=== PATIENT | male | born 1950 | race Caucasian/White ===

== ENCOUNTER 2017-12-03 07:11 | Day surgery (SDC) | payer OTHER ==
[2017-12-03] MEDS ORDERED: NS 500 ML IV 500 ML IV ONE ×2 (07:31→08:26)
[2017-12-03] MEDS ORDERED: TETRACAINE 0.5% OPHTH 1 DOSE AFFEYE ONE ×4 (07:35→09:33)
[2017-12-03] MEDS ORDERED: VIGAMOX 0.5% OPHTH 1 DOSE AFFEYE ONE ×5 (07:36→09:47)
[2017-12-03] MEDS ORDERED: PROLENSA OPHTH 1 DOSE AFFEYE ONE (07:47)
[2017-12-03] MEDS ORDERED: ALPHAGAN-P OPHTH 1 DOSE AFFEYE ONE (07:48)
[2017-12-03] MEDS ORDERED: MYDRIACIL OPHTH 1 DOSE AFFEYE ONE ×2 (07:49→07:50)
[2017-12-03] MEDS ORDERED: AK-DILATE 2.5% OPHTH 1 DOSE OP ONE ×3 (07:49→07:51)
[2017-12-03] MEDS ORDERED: CYCLOGYL 1% OPHTH 1 DOSE OP ONE ×3 (07:49→07:51)
[2017-12-03] MEDS ORDERED: MYDRIACIL OPHTH 1 DOSE OP ONE (07:51)
[2017-12-03] MEDS ORDERED: BETADINE OPHTH SOLN 5% EACHEYE ONE (09:25)
[2017-12-03] MEDS ORDERED: XYLOCAINE-MPF 1% IJ ONE ×2 (09:31→09:33)
[2017-12-03] MEDS ORDERED: ADRENALINE CHL INJ IJ ONE ×2 (09:31→09:33)
[2017-12-03] MEDS ORDERED: BSS OPHTH (PLAIN) 500 ML with VANCOMYCIN HCL 500 MG VIAL 25 MG, ADRENALINE CHL INJ 1 MG IR ONE ×3 (09:32)
[2017-12-03] MEDS ORDERED: DUOVISC IO ONE ×2 (09:32→09:33)
[2017-12-03 14:03] VITALS: BP 144/84
[2017-12-03] MEDS ORDERED: DIPRIVAN VIAL ONE (15:53)
== END 2017-12-03 10:10 | disposition home or self-care (01) ==
LOC: SURG1 07:11
PROVIDERS: ATTEND Ophthalmology
PROC: 08RJ3JZ Replacement of Right Lens with Synthetic Substitute, Percutaneous Approach (ICD-10-PCS; principal; 2017-12-03 06:00)
PROC: 08DJ3ZZ Extraction of Right Lens, Percutaneous Approach (ICD-10-PCS; principal; 2017-12-03 06:00)
DX: H25.11 Age-related nuclear cataract, right eye (principal); H25.041 Posterior subcapsular polar age-related cataract, right eye
CPT/HCPCS: A4217; J0170; J3370; J3490

== ENCOUNTER 2017-12-24 08:03 | Day surgery (SDC) | payer OTHER ==
[2017-12-24] MEDS ORDERED: TETRACAINE 0.5% OPHTH 1 DOSE AFFEYE ONE ×4 (08:25→11:04)
[2017-12-24] MEDS ORDERED: VIGAMOX 0.5% OPHTH 1 DOSE AFFEYE ONE ×6 (08:30→11:21)
[2017-12-24] MEDS ORDERED: NS 500 ML IV 500 ML IV ONE (08:36)
[2017-12-24] MEDS ORDERED: PROLENSA OPHTH 1 DOSE AFFEYE ONE (08:41)
[2017-12-24] MEDS ORDERED: ALPHAGAN-P OPHTH 1 DOSE AFFEYE ONE (08:42)
[2017-12-24] MEDS ORDERED: AK-DILATE 2.5% OPHTH 1 DOSE OP ONE ×3 (08:43→08:45)
[2017-12-24] MEDS ORDERED: MYDRIACIL OPHTH 1 DOSE AFFEYE ONE ×3 (08:43→08:45)
[2017-12-24] MEDS ORDERED: CYCLOGYL 1% OPHTH 1 DOSE OP ONE ×3 (08:43→08:45)
[2017-12-24] MEDS ORDERED: KENALOG INJ 40 MG IM ONE ×3 (10:41→11:20)
[2017-12-24] MEDS ORDERED: BETADINE OPHTH SOLN 5% EACHEYE ONE (10:48)
[2017-12-24] MEDS ORDERED: ADRENALINE CHL INJ IJ ONE ×2 (11:03→11:04)
[2017-12-24] MEDS ORDERED: BSS OPHTH (PLAIN) 500 ML with VANCOMYCIN HCL 500 MG VIAL 25 MG, ADRENALINE CHL INJ 1 MG IR ONE ×3 (11:04)
[2017-12-24] MEDS ORDERED: XYLOCAINE-MPF 1% IJ ONE (11:04)
[2017-12-24] MEDS ORDERED: DUOVISC IO ONE (11:04)
[2017-12-24 11:33] VITALS: BP 171/89
[2017-12-24] MEDS ORDERED: DIPRIVAN VIAL ONE (14:00)
[2017-12-24] MEDS ORDERED: VERSED ONE (14:00)
== END 2017-12-24 11:44 | disposition home or self-care (01) ==
LOC: SURG1 08:03
PROVIDERS: ATTEND Ophthalmology
PROC: 08BTXZX Excision of Left Conjunctiva, External Approach, Diagnostic (ICD-10-PCS; principal; 2017-12-24 13:30)
PROC: 08DK3ZZ Extraction of Left Lens, Percutaneous Approach (ICD-10-PCS; principal; 2017-12-24 13:30)
PROC: 08RK3JZ Replacement of Left Lens with Synthetic Substitute, Percutaneous Approach (ICD-10-PCS; principal; 2017-12-24 13:30)
DX: H25.12 Age-related nuclear cataract, left eye (principal); H25.012 Cortical age-related cataract, left eye; H11.052 Peripheral pterygium, progressive, left eye
CPT/HCPCS: A4217; J0170; J2250; J3301; J3370; J3490